=== PATIENT | female | born 1965 | race Hispanic/Latino ===

== ENCOUNTER → 2023-11-04 | Day surgery (SDC) | payer BC, OTHER ==
[~2023-11-04] MED LIST: CRESTOR40 MG PO; LEVOTHYROXINE50 MCG PO; LIDOCAINE HCL 2% LOCAL INJ 5 ML SDV VIAL INJ ONE; MIDAZOLAM HCL 2 MG/2 ML VIAL ONE; PROPOFOL IV EMULSION 10 MG/ML 20 ML VIAL ONE
[2023-11-04] MEDS: LACTATED RINGER'S 1,000 ML ONE (08:25)
[2023-11-04 10:39] VITALS: TEMP 97
[2023-11-04 11:50] VITALS: BP 129/71; PULSE 62; RESP 13; O2SAT 99
== END | disposition home or self-care (01) ==
LOC: OR 07:53
PROVIDERS: ATTEND Internal Medicine Gastroenterology
DX: Z12.11 Encounter for screening for malignant neoplasm of colon (principal); K62.89 Other specified diseases of anus and rectum; K64.8 Other hemorrhoids; K21.9 Gastro-esophageal reflux disease without esophagitis; E78.00 Pure hypercholesterolemia, unspecified; E03.9 Hypothyroidism, unspecified; Z01.810 Encounter for preprocedural cardiovascular examination; Z79.899 Other long term (current) drug therapy
CPT/HCPCS: 45378; 93005; J2001; J2250